=== PATIENT | female | born 1985 | race Caucasian/White ===

== ENCOUNTER 2022-04-13 | Emergency (ER) | payer OTHER ==
[2022-04-13] MEDS ORDERED: Ketorolac 30 MG/ML SDV IVPUSH ONE (00:25)
[2022-04-13 00:58] LABS: CARBON DIOXIDE,CO2 26.9 mmol/L (21.0-32.0); POTASSIUM,K 3.8 mmol/L (3.5-5.1)
[2022-04-13] MEDS ORDERED: Iopamidol 755 MG/ML 500 ML Multipack Bottle IVPUSH STA (01:35)
== END 2022-04-13 02:27 | disposition home or self-care (01) ==
LOC: MW.ED
DX: R10.31 Right lower quadrant pain (principal); Z90.49 Acquired absence of other specified parts of digestive tract
CPT/HCPCS: 36415; 74178; 80053; 81003; 81025; 83605; 83690; 85025; 85610; 96374; 99284; J1885; Q9967